=== PATIENT | male | born 1955 | race Hispanic/Latino ===

== ENCOUNTER 2022-01-21 05:44 | Day surgery (SDC) | payer OTHER ==
[2022-01-16 11:49] LABS: BASOPHILS % (AUTO) 1.1 % (0.0-5.0); EOSINOPHILS % (AUTO) 7.3 % (0.0-8.0); HEMATOCRIT 42.2 % (42-54); MEAN CORPUSCULAR HEMOGLOBIN 30.5 pg (27.0-33.0); MEAN CORPUSCULAR HGB CONC 33.2 g/dL (32.0-36.0); MEAN CORPUSCULAR VOLUME 91.9 fL (79-99); NEUTROPHILS % (AUTO) 53.3 % (40.0-77.0); PLATELET COUNT (AUTO) 294 K/uL (130-400); RED BLOOD CELL COUNT(AUTO) 4.59 MIL/uL (4.50-6.20); RED CELL DISTRIBUTION WIDTH 13.5 % (11.0-15.5); WHITE BLOOD COUNT (AUTO) 6.1 K/uL (4.8-10.8)
[2022-01-16 11:58] LABS: CREATININE 0.9 mg/dL (0.5-1.5); POTASSIUM 5.2 mmol/L (3.5-5.1)
[2022-01-16 12:01] LABS: INR 1.05 (0.85-1.15); PROTHROMBIN TIME 11.4 SEC (9.6-11.6)
[2022-01-21] VITALS (11 sets, daily range): BP systolic 82–145; BP diastolic 50–75
[~2022-01-21] VITALS: Ht 152.4 cm; Wt 74.1 kg
[~2022-01-21 05:44] MED LIST: ADV250 IH; ALBU2.5V2 IH; ASPI-1197 PO; CA C1TAB95 PO; LEVALBUTEROL IH; LISI2.5T13 PO; METF-444 PO; OXCA150T27 PO; PHEN100C23 PO; ROSU10TA22 PO; TAMS-1 PO
[2022-01-21] MEDS ORDERED: LIDOCAINE HCL 2% VISCOUS 15 ML UDCUP ONE (07:23)
[2022-01-21] MEDS ORDERED: PROPOFOL 1000 MG/100 ML 100 ML IV ONE (07:35)
[2022-01-21] MEDS ORDERED: APIX5TAB PO (08:50)
[2022-01-21] MEDS ORDERED: MONT-39 PO (08:50)
[2022-01-21] MEDS ORDERED: FURO20TA4 PO (08:50)
[2022-01-21] MEDS ORDERED: METO-408 PO (08:50)
[2022-01-21] MEDS ORDERED: DONE5TAB33 PO (08:50)
== END 2022-01-21 09:15 | disposition home or self-care (01) ==
LOC: DAH 05:44
PROVIDERS: ATTEND Student in an Organized Health Care Education/Training Program
DX: I48.4 Atypical atrial flutter (principal); I08.1 Rheumatic disorders of both mitral and tricuspid valves; I11.0 Hypertensive heart disease with heart failure; I50.21 Acute systolic (congestive) heart failure; J45.909 Unspecified asthma, uncomplicated; E78.2 Mixed hyperlipidemia; K21.9 Gastro-esophageal reflux disease without esophagitis; E11.9 Type 2 diabetes mellitus without complications; Z79.01 Long term (current) use of anticoagulants; Z79.82 Long term (current) use of aspirin; Z79.84 Long term (current) use of oral hypoglycemic drugs; Z79.899 Other long term (current) drug therapy; Z98.890 Other specified postprocedural states; Z88.8 Allergy status to other drugs, medicaments and biological substances; Z90.49 Acquired absence of other specified parts of digestive tract
CPT/HCPCS: 36415; 80048; 82948; 85025; 85610; 85730; 87635; 92960; 93005; 93312; 93325; A4215; A4216; A4221; A4222; A4223 ×3; A4606; A4615; A4663; A7002; C9803; J2704; 36556; 96374; 99152